=== PATIENT | female | born 1950 | race Caucasian/White ===

== ENCOUNTER 2017-02-24 08:10 | Emergency (ER) | payer OTHER ==
[~2017-02-24] VITALS: Ht 160 cm; Wt 67.6 kg
[2017-02-24 08:23] VITALS: BP_SYST 138
[2017-02-24] MEDS ORDERED: PHENAZOPYRIDINE HCL 100 MG TABLET PO ONE (09:15)
[2017-02-24 10:00] LABS: BILIRUBIN,URINE NEGATIVE (NEGATIVE); BLOOD, URINE 3+ (NEGATIVE); CLARITY/URINE SL CLOUDY (CLEAR); COLOR,URINE YELLOW (YELLOW); GLUCOSE,URINE NEGATIVE (NEGATIVE); KETONES,URINE NEGATIVE (NEGATIVE); LEUKOCYTE ESTERASE ,URINE 3+ (NEGATIVE); NITRITE, URINE POSITIVE (NEGATIVE); PROTEIN URINE 1+ (NEGATIVE); UROBILINOGEN,URINE 0.2 (0.2-1.0)
[2017-02-24 10:10] LABS: BACTERIA,URINE MODERATE /HPF (None Seen); RBC,URINE 20-50 /HPF (0-3); WBC,URINE 20-50 /HPF (0-3)
[2017-02-24 10:45] VITALS: BP_SYST 134
[2017-02-24] MEDS ORDERED: CIPROFLOXACIN HCL 500 MG TABLET PO ONE (10:45)
== END 2017-02-24 10:45 | disposition home or self-care (01) ==
LOC: SED 08:10
DX: N39.0 Urinary tract infection, site not specified (principal); I10 Essential (primary) hypertension; L40.9 Psoriasis, unspecified; Z90.89 Acquired absence of other organs
CPT/HCPCS: 74000-TC; 81000-TC; 87086; 87186-TC; 99285

== ENCOUNTER 2017-06-14 10:34 | Outpatient (CLI) | payer OTHER | END 2017-06-14 21:20 | disposition home or self-care (01) | LOC: SRD 10:34 | PROVIDERS: ATTEND Orthopaedic Surgery | DX: S93.602A Unspecified sprain of left foot, initial encounter (principal); S93.492A Sprain of other ligament of left ankle, initial encounter; X58.XXXA Exposure to other specified factors, initial encounter; Y93.89 Activity, other specified; Y92.89 Other specified places as the place of occurrence of the external cause; Y99.8 Other external cause status ==

== ENCOUNTER 2017-06-27 23:29 | Emergency (ER) | payer OTHER ==
[~2017-06-27] VITALS: Ht 160 cm; Wt 67.1 kg
[2017-06-27 23:50] VITALS: BP_SYST 116
[2017-06-28 04:10] VITALS: BP_SYST 118
== END 2017-06-28 04:45 | disposition home or self-care (01) ==
LOC: SED 23:29
DX: L03.116 Cellulitis of left lower limb (principal); I10 Essential (primary) hypertension
CPT/HCPCS: 99283

== ENCOUNTER 2017-09-02 05:13 | Emergency (ER) | payer OTHER ==
[~2017-09-02] VITALS: Ht 157.5 cm; Wt 68.0 kg
[2017-09-02 05:22] VITALS: BP_SYST 145
[2017-09-02] MEDS ORDERED: ACETAMINOPHEN 325 MG TABLET PO ONE (06:15)
[2017-09-02 06:26] VITALS: BP_SYST 137
== END 2017-09-02 06:26 | disposition home or self-care (01) ==
LOC: SED 05:13
DX: S16.1XXA Strain of muscle, fascia and tendon at neck level, initial encounter (principal); I10 Essential (primary) hypertension; Z90.89 Acquired absence of other organs; Z98.890 Other specified postprocedural states; X58.XXXA Exposure to other specified factors, initial encounter; Y93.89 Activity, other specified; Y92.89 Other specified places as the place of occurrence of the external cause; Y99.8 Other external cause status
CPT/HCPCS: 99283

== ENCOUNTER 2018-07-01 09:28 | Inpatient (IN) | payer OTHER ==
[~2018-07-01] VITALS: Ht 160 cm; Wt 67.1 kg
[2018-07-01 09:42] VITALS: BP_SYST 132
[2018-07-01] MEDS ORDERED: NACL 0.9% 2,000 ML IV ONE (11:45)
[2018-07-01] MEDS ORDERED: LEVOFLOXACIN 500 MG/D5W 100 ML IV ONE (11:45)
[2018-07-01] MEDS ORDERED: NACL 0.9% 1,000 ML IV ONE (12:00)
[2018-07-01] MEDS ORDERED: ENOXAPARIN SODIUM 80 MG/0.8 ML SYRINGE SUBCUT ONE (12:00)
[2018-07-01 12:29] LABS: HEMATOCRIT 35.6 % (36-48); HEMOGLOBIN 11.7 g/dL (12.0-16.0); MEAN CORPUSCULAR HEMOGLOBIN 29 pg (27-31); MEAN CORPUSCULAR HGB CONC 33 % (32-36); MEAN CORPUSCULAR VOLUME 89 fL (79.0-98.0); PLATELET COUNT (AUTO) 219 K/uL (130-430); RED BLOOD CELL COUNT(AUTO) 3.98 MIL/uL (4.2-6.2); WHITE BLOOD COUNT (AUTO) 10.5 K/uL (4.8-10.8)
[2018-07-01 12:30] LABS: BASOPHILS % (AUTO) 0.6 % (0.0-2.0); EOSINOPHILS # (AUTO) 0.1 K/uL (0.0-0.4); EOSINOPHILS % (AUTO) 1.1 % (0.0-4.0); LYMPHOCYTES # (AUTO) 1.5 K/uL (1.0-5.5); LYMPHOCYTES % (AUTO) 14.5 % (20.5-51.5); MONOCYTES # (AUTO) 0.8 K/uL (0.0-1.0); MONOCYTES % (AUTO) 7.2 % (1.7-9.3); NEUTROPHILS # (AUTO) 8.1 K/uL (1.8-7.7); NEUTROPHILS % (AUTO) 76.6 % (40.0-70.0)
[2018-07-01 12:40] LABS: INR 1.2 (0.8-1.2); PROTHROMBIN TIME 11.8 SECS (9.5-12.5)
[2018-07-01 12:52] LABS: CALCIUM 9.1 mg/dL (8.4-11.0); CREATININE 0.68 mg/dL (0.55-1.30); POTASSIUM 4.1 mmol/L (3.5-5.1)
[2018-07-01 12:55] LABS: ALBUMIN 2.9 g/dL (3.4-4.8); TOTAL BILIRUBIN 0.7 mg/dL (0.0-1.0)
[2018-07-01 14:19] VITALS: BP_SYST 148
[2018-07-01] MEDS: ACETAMINOPHEN 325 MG TABLET PO PRN (16:57)
[2018-07-01] MEDS ORDERED: *LOVENOX 1MG/KG Q12H/PHARMACY XX ONE (17:00)
[2018-07-01 20:00] VITALS: BP_SYST 129
[2018-07-01] MEDS: ENOXAPARIN SODIUM 80 MG/0.8 ML SYRINGE SUBCUT SCH (20:59)
[2018-07-02] VITALS: BP_SYST 128
[2018-07-02 08:00] VITALS: BP_SYST 146
[2018-07-02] MEDS: ENOXAPARIN SODIUM 80 MG/0.8 ML SYRINGE SUBCUT SCH (08:03)
[2018-07-02 09:44] LABS: POTASSIUM 3.6 mmol/L (3.5-5.1)
[2018-07-02 09:45] LABS: CALCIUM 9.3 mg/dL (8.4-11.0); CREATININE 0.64 mg/dL (0.55-1.30)
[2018-07-02 09:47] LABS: ALBUMIN 2.9 g/dL (3.4-4.8); C-REACTIVE PROTEIN QUANT 11.9 mg/dL (0-0.5); TOTAL BILIRUBIN 0.8 mg/dL (0.0-1.0)
[2018-07-02 09:48] LABS: THYROID STIMULATING HORMONE 2.4 uIu/mL (0.34-4.82)
[2018-07-02 12:38] VITALS: BP_SYST 123
[2018-07-02 14:55] LABS: RETICULOCYTE COUNT 1.1 % (0.5-1.5)
[2018-07-02 15:25] VITALS: BP_SYST 123
[2018-07-02 16:41] VITALS: BP_SYST 127
[2018-07-02] MEDS: ACETAMINOPHEN 325 MG TABLET PO PRN (16:41)
== END 2018-07-02 17:00 | disposition home or self-care (01) | DRG 301 ==
LOC: SED 09:28 → SMU 13:45
PROVIDERS: ADMIT Internal Medicine Hospice and Palliative Medicine; ATTEND Internal Medicine Hospice and Palliative Medicine
DX: I82.402 Acute embolism and thrombosis of unspecified deep veins of left lower extremity (principal); D64.9 Anemia, unspecified; L40.9 Psoriasis, unspecified; Z80.0 Family history of malignant neoplasm of digestive organs; I10 Essential (primary) hypertension
CPT/HCPCS: 36415; 80053; 82977-TC; 84443-TC; 85025; 85044-TC; 85610-TC; 85651-TC; 85730-TC; 86140; 93971; 96360; 96372; 99285; J1650; J7030

== ENCOUNTER 2018-07-22 10:34 | Outpatient (CLI) | payer OTHER ==
[2018-07-22 11:40] LABS: BILIRUBIN,URINE NEGATIVE (NEGATIVE); BLOOD, URINE NEGATIVE (NEGATIVE); CLARITY/URINE CLEAR (CLEAR); COLOR,URINE YELLOW (YELLOW); GLUCOSE,URINE NEGATIVE (NEGATIVE); KETONES,URINE NEGATIVE (NEGATIVE); LEUKOCYTE ESTERASE ,URINE NEGATIVE (NEGATIVE); NITRITE, URINE NEGATIVE (NEGATIVE); PH,URINE 6.5 (5.0-8.0); PROTEIN URINE NEGATIVE (NEGATIVE); UROBILINOGEN,URINE 0.2 (0.2-1.0)
== END 2018-07-22 20:48 | disposition home or self-care (01) ==
LOC: SMA 10:34
DX: Z12.31 Encounter for screening mammogram for malignant neoplasm of breast (principal); N39.0 Urinary tract infection, site not specified
CPT/HCPCS: 77067; 81003; 87086

== ENCOUNTER 2018-07-25 15:57 | Emergency (ER) | payer OTHER ==
[~2018-07-25] VITALS: Ht 160 cm; Wt 67.1 kg
[2018-07-25 16:03] VITALS: BP_SYST 162
--- NOTE | 2018-07-25 16:06 | NUR ---
Patient to ER bed 07 to gown for evaluation. Side rails up.
--- NOTE | 2018-07-25 16:22 | NUR ---
Patient stated "I had red blood in my urine this morning". No c/o pain, denies N/V, pt is afebrile, VS WNL, respirations even and unlabored, cap refill <3.
--- NOTE | 2018-07-25 16:30 | NUR ---
Dr Hoang at bedside examining patient.
[2018-07-25 17:16] LABS: BILIRUBIN,URINE NEGATIVE (NEGATIVE); BLOOD, URINE 3+ (NEGATIVE); CLARITY/URINE SL CLOUDY (CLEAR); COLOR,URINE RED (YELLOW); GLUCOSE,URINE NEGATIVE (NEGATIVE); KETONES,URINE NEGATIVE (NEGATIVE); LEUKOCYTE ESTERASE ,URINE NEGATIVE (NEGATIVE); NITRITE, URINE NEGATIVE (NEGATIVE); PH,URINE 6.5 (5.0-8.0); PROTEIN URINE 1+ (NEGATIVE); UROBILINOGEN,URINE 0.2 (0.2-1.0)
[2018-07-25 17:19] LABS: BACTERIA,URINE FEW /HPF (None Seen); RBC,URINE >100 /HPF (0-3); WBC,URINE 0-3 /HPF (0-3)
--- NOTE | 2018-07-25 17:40 | NUR ---
Pt on stable condition, VS WNL, respirations even and unlabored, cap refill <3.
[2018-07-25 18:15] VITALS: BP_SYST 153
--- NOTE | 2018-07-25 18:25 | NUR ---
Patient given written and verbal discharge instructions and verbalizes understanding. SISI Hoang MD discussed with patient the results and treatment provided. Patient in stable condition. ID arm band removed. Rx of Flomax and Bethel given. Patient educated on pain management and to follow up with PMD. Pain Scale 0/10 . Opportunity for questions provided and answered. Medication side effect fact sheet provided.
== END 2018-07-25 18:31 | disposition home or self-care (01) ==
LOC: SED 15:57
DX: N20.0 Calculus of kidney (principal); R31.9 Hematuria, unspecified; I10 Essential (primary) hypertension; Z86.718 Personal history of other venous thrombosis and embolism
CPT/HCPCS: 81000-TC; 99284

== ENCOUNTER 2018-08-14 08:24 | Outpatient (CLI) | payer OTHER | END 2018-08-14 20:38 | disposition home or self-care (01) | LOC: SLB 08:24 | PROVIDERS: ATTEND Specialist | DX: I82.402 Acute embolism and thrombosis of unspecified deep veins of left lower extremity (principal) | CPT/HCPCS: 36415; 81400; 81403; 81407; 81479; 84311; 85300; 85303; 85306 ==

== ENCOUNTER 2018-08-22 13:00 | Outpatient (CLI) | payer OTHER | END 2018-08-22 20:57 | disposition home or self-care (01) | LOC: SMA 13:00 | PROVIDERS: ATTEND Internal Medicine | DX: R92.1 Mammographic calcification found on diagnostic imaging of breast (principal) | CPT/HCPCS: 76642; 77066 ==

== ENCOUNTER 2019-01-07 06:09 | Emergency (ER) | payer OTHER ==
[~2019-01-07] VITALS: Ht 160 cm; Wt 68.5 kg
[2019-01-07 06:30] VITALS: BP_SYST 148
--- NOTE | 2019-01-07 07:00 | NUR ---
Patient to ER bed 2 to gown for evaluation. Side rails up. Report given to Lenin FORD.
--- NOTE | 2019-01-07 07:25 | NUR ---
Pt c/o R hand pain w/swelling and mild decreased ROM w/o trauma. Pt has pain with palpation, no deformity noted.
--- NOTE | 2019-01-07 07:42 | NUR ---
SISI Hoang at bedside examining patient.
--- NOTE | 2019-01-07 08:00 | NUR ---
Pt medicated tolerated well.
[2019-01-07] MEDS ORDERED: PREDNISONE 20 MG TABLET PO ONE (08:15)
[2019-01-07] MEDS ORDERED: IBUPROFEN 600 MG TABLET PO ONE (08:15)
[2019-01-07 08:40] VITALS: BP_SYST 132
--- NOTE | 2019-01-07 08:40 | NUR ---
Patient given written and verbal discharge instructions and verbalizes understanding. ER MD discussed with patient the results and treatment provided. Patient in stable condition. ID arm band removed. Rx of prednisone given. Patient educated on pain management and to follow up with PMD. Pain Scale 2. Opportunity for questions provided and answered. Medication side effect fact sheet provided.
== END 2019-01-07 08:40 | disposition home or self-care (01) ==
LOC: SED 06:09
DX: M13.88 Other specified arthritis, other site (principal); I10 Essential (primary) hypertension
CPT/HCPCS: 73120; 99283; J7512

== ENCOUNTER 2019-01-24 09:46 | Outpatient (CLI) | payer OTHER ==
[2019-01-24 12:09] LABS: BASOPHILS % (AUTO) 0.3 % (0.0-2.0); EOSINOPHILS % (AUTO) 0.2 % (0.0-4.0); HEMATOCRIT 36.6 % (36-48); HEMOGLOBIN 12.1 g/dL (12.0-16.0); LYMPHOCYTES # (AUTO) 0.9 K/uL (1.0-5.5); LYMPHOCYTES % (AUTO) 6.6 % (20.5-51.5); MEAN CORPUSCULAR HEMOGLOBIN 30 pg (27-31); MEAN CORPUSCULAR HGB CONC 33 % (32-36); MEAN CORPUSCULAR VOLUME 90 fL (79.0-98.0); MONOCYTES # (AUTO) 0.5 K/uL (0.0-1.0); MONOCYTES % (AUTO) 3.7 % (1.7-9.3); NEUTROPHILS # (AUTO) 12.1 K/uL (1.8-7.7); NEUTROPHILS % (AUTO) 89.2 % (40.0-70.0); PLATELET COUNT (AUTO) 317 K/uL (130-430); RED BLOOD CELL COUNT(AUTO) 4.08 MIL/uL (4.2-6.2); RED CELL DISTRIBUTION WIDTH 13.6 % (9.0-15.0); WHITE BLOOD COUNT (AUTO) 13.6 K/uL (4.8-10.8)
[2019-01-24 12:31] LABS: ALBUMIN 3.1 g/dL (3.4-4.8); C-REACTIVE PROTEIN QUANT 5.1 mg/dL (0-0.5); CALCIUM 9.9 mg/dL (8.4-11.0); CREATININE 0.67 mg/dL (0.55-1.30); POTASSIUM 4.1 mmol/L (3.5-5.1); TOTAL BILIRUBIN 0.8 mg/dL (0.0-1.0)
[2019-01-24 12:53] LABS: ERYTHROCYTE SEDIMENTATION RATE 86 MM/HR (0-20)
[2019-01-25 07:20] LABS: HEPATITIS B SURFACE AG Negative (Negative); HEPATITIS C VIRUS AB <0.1 s/co ratio (0.0-0.9)
[2019-01-25 12:10] LABS: CA 27.29 28.6 U/mL (0.0-38.6)
[2019-01-26 21:09] LABS: RA LATEX TURBID 22.5 IU/mL (0.0-13.9)
[2019-01-27 13:07] LABS: ANTI NUCLEAR AB WITH REFLEX Positive (Negative)
[2019-01-27 18:09] LABS: CCP IgG AB 8 units (0-19)
[2019-01-30 16:15] LABS: HLA-B27 Negative (.)
== END 2019-01-24 20:58 | disposition home or self-care (01) ==
LOC: SRD 09:46
PROVIDERS: ATTEND Specialist
DX: M19.032 Primary osteoarthritis, left wrist (principal); M25.732 Osteophyte, left wrist; M77.31 Calcaneal spur, right foot; I82.412 Acute embolism and thrombosis of left femoral vein; Z79.01 Long term (current) use of anticoagulants
CPT/HCPCS: 36415; 80053; 81374; 84550-TC; 85025; 85379; 85651-TC; 86038; 86140; 86200; 86300; 86431; 86706; 86803; 87340

== ENCOUNTER 2019-02-19 09:00 | Day surgery (SDC) | payer OTHER ==
[2019-02-17 09:28] LABS: BASOPHILS % (AUTO) 0.5 % (0.0-2.0); EOSINOPHILS # (AUTO) 0.1 K/uL (0.0-0.4); EOSINOPHILS % (AUTO) 1.5 % (0.0-4.0); HEMOGLOBIN 11.4 g/dL (12.0-16.0); LYMPHOCYTES # (AUTO) 1.4 K/uL (1.0-5.5); LYMPHOCYTES % (AUTO) 14.7 % (20.5-51.5); MEAN CORPUSCULAR HEMOGLOBIN 30 pg (27-31); MEAN CORPUSCULAR HGB CONC 34 % (32-36); MEAN CORPUSCULAR VOLUME 90 fL (79.0-98.0); MONOCYTES # (AUTO) 0.7 K/uL (0.0-1.0); MONOCYTES % (AUTO) 7.7 % (1.7-9.3); NEUTROPHILS # (AUTO) 7.2 K/uL (1.8-7.7); NEUTROPHILS % (AUTO) 75.6 % (40.0-70.0); PLATELET COUNT (AUTO) 258 K/uL (130-430); RED BLOOD CELL COUNT(AUTO) 3.78 MIL/uL (4.2-6.2); RED CELL DISTRIBUTION WIDTH 14.7 % (9.0-15.0); WHITE BLOOD COUNT (AUTO) 9.5 K/uL (4.8-10.8)
[2019-02-17 09:31] LABS: ALBUMIN 3.1 g/dL (3.4-4.8); CALCIUM 8.6 mg/dL (8.4-11.0); CREATININE 0.73 mg/dL (0.55-1.30); POTASSIUM 4.1 mmol/L (3.5-5.1); PROTHROMBIN TIME 10.7 SECS (9.5-12.5); TOTAL BILIRUBIN 0.6 mg/dL (0.0-1.0)
[~2019-02-19] VITALS: Ht 160 cm; Wt 70.3 kg
[2019-02-19] MEDS ORDERED: LIDOCAINE/EPI 1% 1:100000 20 ML VIAL INJ ONE (09:01)
[2019-02-19] MEDS ORDERED: NS IRRIG SOLN 1000 ML IR ONE (09:01)
[2019-02-19] MEDS ORDERED: LR 1,000 ML IV.SOLN IV ONE (09:01)
[2019-02-19] MEDS ORDERED: ONDANSETRON HCL 4 MG/2 ML VIAL IVP ONE (09:01)
[2019-02-19] MEDS ORDERED: PROPOFOL 200MG/ 20ML VIAL (DIPRIVAN) IV ONE (09:01)
[2019-02-19] MEDS ORDERED: SEVOFLURANE 15 MIN GAS INH ONE (09:01)
[2019-02-19] MEDS ORDERED: KETOROLAC TROMETHAMINE 30 MG VIAL IVP ONE (09:01)
[2019-02-19] MEDS ORDERED: MIDAZOLAM HCL 5 MG/5 ML VIAL IVP ONE (09:01)
[2019-02-19] MEDS ORDERED: fentaNYL CITRATE/PF 100 MCG/2 ML AMP IVP ONE (09:01)
[2019-02-19] MEDS ORDERED: CEFAZOLIN 2 GM IVPB PREMIX 50 ML IV ONE (09:01)
[2019-02-19] MEDS ORDERED: ISOSULFAN BLUE 5 ML VIAL (LYMPHAZURIN) INJ ONE (09:01)
[2019-02-19] MEDS ORDERED: KETOROLAC TROMETHAMINE 30 MG VIAL IVP PRN (15:15)
[2019-02-19] MEDS ORDERED: ONDANSETRON HCL 4 MG/2 ML VIAL IVP PRN ×2 (15:15→18:15)
[2019-02-19] MEDS ORDERED: fentaNYL CITRATE/PF 100 MCG/2 ML AMP IVP PRN ×2 (15:15)
--- NOTE | 2019-02-19 16:10 | NUR ---
opening note patient brought in from PACU for observation, vitals taken were 99.4, 133/77, 70, 97%, 18, educated chain builder loom control light system and orders that Dr Torres has for her, patient verbalized understanding, no other needs at this time, fall/safety precautions in place.
[2019-02-19] MEDS ORDERED: RIVA20TA PO (17:56)
[2019-02-19] MEDS ORDERED: PRED5TAB PO (17:57)
[2019-02-19] MEDS ORDERED: FOLI-43 PO (17:57)
[2019-02-19] MEDS ORDERED: METH2.5T PO (17:58)
[2019-02-19] MEDS ORDERED: HYDR-4272 PO (17:58)
[2019-02-19] MEDS ORDERED: IBUP-1971 PO (17:59)
[2019-02-19] MEDS ORDERED: DOCU-144 PO (17:59)
[2019-02-19] MEDS ORDERED: HYDROmorphone 1 MG INJ. 1 MG/ML AMPUL IVP PRN (18:15)
--- NOTE | 2019-02-19 18:52 | NUR ---
closing note patient is resting in bed, family in the room, prn pain medication was given to patient for left breast pain, informed patient that she can go home tonight but we do need her to ambulate before she leaves, the family was given the prescription written by Dr Torres, I informed the INVESTMENT ANALYST about the patient leaving tonight, there are written orders in the binder chart for noc shift nurse to confirm with. Addendum: 02/19/19 at 1930 by Betsey Bravo RN vital signs BP and HR 1625- 131/75, 63 1640- 131/75, 63 1655- 131/75, 67 1710- 115/71, 69 1725- 105/91, 83 Addendum: 02/19/19 at 1931 by Betsey Bravo RN patient belongings patient belongings were given back to her from same day surgery.
--- NOTE | 2019-02-19 19:43 | NUR ---
Assumed care of patient. Patient is resting comfortably in bed, family in the room, prn pain medication was given by previous shift. Patient is in no acute distress but appears somewhat lethargic. Respirations are equal and none labored. Patient has ambulated and understand she may go home tonight. Patient wishes to rest for a while at this time do to sedation. Will continue to monitor for safety.
--- NOTE | 2019-02-19 20:20 | NUR ---
BP CHECKED X 2. TO RIGHT ARM. 84/59 P 74 AND 82/54 P73 R18 96.6. NO C/O PAIN AT THIS TIME. PATIENT DOES FEEL DIZZY AND DOES NOT FEEL SAFE GOING HOME AT THIS TIME. WILL CONSULT WITH CHARGE NURSE FOR CONSIDERATION TO KEEP PATIENT OVER NIGHT.
--- NOTE | 2019-02-19 21:52 | NUR ---
Patient resting comfortably. feels somewhat lightheaded and will remain overnight for observation. Patient is asymptomatic, no acute distress noted. will continue to monitor.
--- NOTE | 2019-02-19 23:04 | NUR ---
BP RE-CHECKED 90/58 P 79. NO ACUTE DISTRESS NOTED.
--- NOTE | 2019-02-19 23:40 | NUR ---
CONTACTED DR. YORK REGARDING PATIENT'S STATUS. MD MADE AWARE PATIENT WILL REMAIN INPATIENT FOR TONIGHT. PROVIDED ORDERS TO START NORCO 5MG Q6HRS PRN FOR PAIN MANAGEMENT. WILL CONTINUE TO MONITOR FOR SAFETY.
[2019-02-19] MEDS ORDERED: HYDROcodone/ACETAMIN 5-325 MG TAB (NORCO/ VICODIN) PO PRN (23:45)
--- NOTE | 2019-02-20 01:28 | NUR ---
BP 97/62 X04
[2019-02-20 01:36] VITALS: BP_SYST 90
--- NOTE | 2019-02-20 05:53 | NUR ---
Patient has has slept well this evening. No acute distress noted. Patient is tolerating PO well. blood pressure remains on the low side but denies dizziness. Patient c/o minor pain but tolerable. will continue to monitor for safety.
[2019-02-20 06:28] LABS: BASOPHILS % (AUTO) 0.2 % (0.0-2.0); EOSINOPHILS % (AUTO) 0.2 % (0.0-4.0); HEMATOCRIT 27.5 % (36-48); HEMOGLOBIN 9.6 g/dL (12.0-16.0); LYMPHOCYTES % (AUTO) 9.9 % (20.5-51.5); MEAN CORPUSCULAR HEMOGLOBIN 31 pg (27-31); MEAN CORPUSCULAR HGB CONC 35 % (32-36); MEAN CORPUSCULAR VOLUME 90 fL (79.0-98.0); MONOCYTES # (AUTO) 0.6 K/uL (0.0-1.0); MONOCYTES % (AUTO) 5.9 % (1.7-9.3); NEUTROPHILS # (AUTO) 8.3 K/uL (1.8-7.7); NEUTROPHILS % (AUTO) 83.8 % (40.0-70.0); PLATELET COUNT (AUTO) 191 K/uL (130-430); RED BLOOD CELL COUNT(AUTO) 3.06 MIL/uL (4.2-6.2); RED CELL DISTRIBUTION WIDTH 14.8 % (9.0-15.0); WHITE BLOOD COUNT (AUTO) 9.9 K/uL (4.8-10.8)
[2019-02-20 06:48] LABS: ALANINE AMINOTRANSFERASE 6 U/L (12-78); ALBUMIN 2.5 g/dL (3.4-4.8); ASPARTATE AMINOTRANSFERASE 14 U/L (10-37); CALCIUM 8.8 mg/dL (8.4-11.0); CHLORIDE 102 mmol/L (98-107); CREATININE 0.76 mg/dL (0.55-1.30); GLUCOSE 114 mg/dL (70-99); POTASSIUM 4.2 mmol/L (3.5-5.1); SODIUM SERUM 134 mmol/L (136-145); TOTAL BILIRUBIN 0.8 mg/dL (0.0-1.0); UREA NITROGEN, BLOOD 26 mg/dL (8-21)
[2019-02-20 06:51] LABS: ANION GAP < 3 (5-15); GFR AFRICAN AMERICAN 97 mL/min (>90)
--- NOTE | 2019-02-20 07:28 | NUR ---
rn opening note Report was endorsed by night nurse at bed side. Patient is awake and alert laying in bed. Patient has no complaints at this time. Patient educated acquisition editor light for assistance. Call light is with her. Patient has no other needs at this time. will continue to monitor.
[2019-02-20 07:57] VITALS: BP_SYST 111
[2019-02-20 09:07] VITALS: BP_SYST 111
--- NOTE | 2019-02-20 09:48 | NUR ---
Spoke with lawanda Landon to follow up in his office in 1 week. Patient can shower cover dressing with opsite.Patient made aware. Addendum: 02/20/19 at 1123 by Angely Huggins RN Patient educated on IS able to inspire [id number]. Patient states her daughter is here eating catheter. Patient educated news correspondent light for assistance.Call light is with patient. Patient has no other needs at this time.
--- NOTE | 2019-02-20 11:00 | NUR ---
discharge Patient educated on discharge paper work with no further questions. Written prescriptions were given to patient yesterday family has already filled medication. Patient states he pain is 0/10 at the moment. Patients dressing reinforced with OpSite as directed by dr. Mcknight. Patient has 's phone number. Patient's ID band removed. Patient IV catheter removed catheter intact apply gauze and tape to insertion site. Patient was educated on IS able to inspire [id number]. Patient took IS with her to continue at home. Patient transferred via wheel chair to daughter's car. no other needs at this time. no other questions.
== END 2019-02-20 11:00 | disposition home or self-care (01) ==
LOC: SDS 09:00 → SMU 09:00 → SDS 02-20 11:00
PROVIDERS: ATTEND Surgery
DX: D05.12 Intraductal carcinoma in situ of left breast (principal); Z86.718 Personal history of other venous thrombosis and embolism; Z88.2 Allergy status to sulfonamides; R00.0 Tachycardia, unspecified; Z79.899 Other long term (current) drug therapy
CPT/HCPCS: 19101; 19281; 36415 ×2; 38525; 71046; 78195; 80053 ×2; 85025 ×2; 85610; 85730; 88307; 88333; 88342; 93005; A9541; J0690; J1170; J1885; J2250; J2405; J2704; J3010; J7120; Q9968; 88305

== ENCOUNTER 2019-03-20 10:32 | Inpatient (IN) | payer OTHER ==
[2019-03-18 11:24] LABS: INR 1.3 (0.8-1.2); PROTHROMBIN TIME 13.2 SECS (9.5-12.5)
[2019-03-18 11:25] LABS: BASOPHILS % (AUTO) 0.3 % (0.0-2.0); EOSINOPHILS % (AUTO) 0.3 % (0.0-4.0); HEMATOCRIT 33.9 % (36-48); HEMOGLOBIN 11.2 g/dL (12.0-16.0); LYMPHOCYTES # (AUTO) 1.1 K/uL (1.0-5.5); LYMPHOCYTES % (AUTO) 9.2 % (20.5-51.5); MEAN CORPUSCULAR HEMOGLOBIN 30 pg (27-31); MEAN CORPUSCULAR HGB CONC 33 % (32-36); MEAN CORPUSCULAR VOLUME 91 fL (79.0-98.0); MONOCYTES % (AUTO) 8.2 % (1.7-9.3); NEUTROPHILS # (AUTO) 9.6 K/uL (1.8-7.7); PLATELET COUNT (AUTO) 292 K/uL (130-430); RED BLOOD CELL COUNT(AUTO) 3.73 MIL/uL (4.2-6.2); RED CELL DISTRIBUTION WIDTH 15.3 % (9.0-15.0); WHITE BLOOD COUNT (AUTO) 11.7 K/uL (4.8-10.8)
[2019-03-18 11:26] LABS: CALCIUM 8.9 mg/dL (8.4-11.0); CREATININE 0.81 mg/dL (0.55-1.30); POTASSIUM 3.5 mmol/L (3.5-5.1); TOTAL BILIRUBIN 1.4 mg/dL (0.0-1.0)
[~2019-03-20] VITALS: Ht 160 cm; Wt 70.3 kg
[~2019-03-20 10:32] MED LIST: DOCU-144 PO; FOLI-43 PO; HYDR-4272 PO; IBUP-1971 PO; METH2.5T PO; PRED5TAB PO
[2019-03-20] MEDS ORDERED: LR 1,000 ML IV SCH (13:39)
[2019-03-20] MEDS ORDERED: MORPHINE 4 MG/ML INJ. SYRINGE IVP PRN ×3 (13:45)
[2019-03-20] MEDS ORDERED: METOCLOPRAMIDE HCL 10 MG/2 ML VIAL IVP PRN (13:45)
[2019-03-20] MEDS: NACL 0.9% 1,000 ML IV SCH ×2 (14:05→22:54)
[2019-03-20] MEDS ORDERED: SEVOFLURANE 15 MIN GAS INH ONE (14:15)
[2019-03-20] MEDS ORDERED: LIDOCAINE/EPI 1% 1:100000 20 ML VIAL INJ ONE (14:15)
[2019-03-20] MEDS ORDERED: ONDANSETRON HCL 4 MG/2 ML VIAL IVP PRN (14:15)
[2019-03-20] MEDS ORDERED: CEFAZOLIN 1 GM IVPB PREMIX 50 ML IV ONE (14:15)
[2019-03-20] MEDS ORDERED: fentaNYL CITRATE 250 MCG/5 ML AMP ONE (14:15)
[2019-03-20] MEDS ORDERED: LR 1,000 ML IV.SOLN IV ONE (14:15)
[2019-03-20] MEDS ORDERED: ACETAMINOPHEN 325 MG TABLET PO PRN (14:15)
[2019-03-20] MEDS ORDERED: MIDAZOLAM HCL 5 MG/ML VIAL (VERSED) IV ONE (14:15)
[2019-03-20] MEDS ORDERED: PROPOFOL 200MG/ 20ML VIAL (DIPRIVAN) IV ONE (14:15)
[2019-03-20] MEDS ORDERED: ROCURONIUM BROMIDE 10 MG/ML (ZEMURON) ONE (14:15)
[2019-03-20] MEDS ORDERED: NS IRRIG SOLN 1000 ML IR ONE (14:15)
[2019-03-20] MEDS ORDERED: ONDANSETRON HCL 4 MG/2 ML VIAL ONE (14:15)
[2019-03-20] MEDS ORDERED: HYDROmorphone 1 MG INJ. 1 MG/ML AMPUL ONE (14:44)
[2019-03-20] MEDS: HYDROmorphone 1 MG INJ. 1 MG/ML AMPUL IVP PRN ×2 (14:45→20:40)
[2019-03-20] MEDS ORDERED: MORPHINE 4 MG/ML INJ. SYRINGE ONE (15:11)
--- NOTE | 2019-03-20 15:30 | NUR ---
Note Pt arrived on floor via bed in stable condition. No SOB/resp distress or severe left chest pain/discomfort noted at this time. Pt oriented to room and nursing routines/procedures. Questions/concerns were answered at this time. Call light within reach.
[2019-03-20 15:40] VITALS: BP_SYST 143
[2019-03-20 15:45] VITALS: BP_SYST 143
[2019-03-20] MEDS: CEFAZOLIN 1 GM IVPB PREMIX 50 ML IV SCH ×2 (16:32→22:52)
--- NOTE | 2019-03-20 16:45 | NUR ---
Note Admission assessment was completed at this time. Pt voided in bedpan at this time. Pt encouraged to use IS q1' 10X while awake. Pt has SCD's bilaterally. Left chest wall dressing CDI with MARIANO drain at this time. Pt eating ice chips at this time. Denies any N/V/pain at this time. Call light within reach. 4-5 family members are at bedside at this time. No needs noted at this time. Call light within reach.
--- NOTE | 2019-03-20 18:30 | NUR ---
Note Pt resting in bed with 3-4 family members at bedside at this time. No needs noted at this time. IV in right hand intact and patent infusing IVF's well. Pt was checked on q1' and PRN all shift for needs and care. No SOB/resp distress or severe left chest pain/discomfort noted. Left chest wall dressing CDI with MARIANO drain at this time. Call light within reach.
--- NOTE | 2019-03-20 19:30 | NUR ---
Opening notes Received report. Patient is resting comfortably in bed, talking to family. No signs of distress noted. Breathing even and unlabored. IV patent and intact, infusing fluids. Dressing to left breast is clean, dry and intact. MARIANO drain noted, with small amount of red drainage noted. Bilateral SCDs in place. Patient complains of pain, will give prn pain medication. Assisted patient onto bedpan. Hygiene care provided by patient. No other needs. Call light with the patient. Safety precautions in place. Family at bedside.
--- NOTE | 2019-03-20 20:40 | NUR ---
Pain Patient complains of pain. PRN pain medication given. Educated the action and side effects of medications. Patient verbalized understanding and tolerated well. No signs of allergic reaction noted. Provided patient with blanket, water and hygiene care items. No other needs. Call light with the patient. Safety precautions in place.
[2019-03-20 20:44] VITALS: BP_SYST 136
--- NOTE | 2019-03-20 23:00 | NUR ---
IVDAVID smith. Educated the patient the action and side effects of medications. Patient verbalized understanding and tolerated well. No signs of allergic reaction noted. New bag of IVF hung. No other needs. Call light with the patient. Safety precautions in place.
[2019-03-21] VITALS: BP_SYST 122
--- NOTE | 2019-03-21 00:57 | NUR ---
Taken off IV fluids Patient requests to be taken off fluids because she is urinating too much. Patient has been drinking fluids and tolerating well. Patient saline locked. Provided with more water. No other needs. Patient watching TV.call light with the patient. Safety precautions in place.
--- NOTE | 2019-03-21 03:41 | NUR ---
Resting Patient put on bedpan to urinate. Hygiene care provided by patient. No other needs. Call light with the patient. Safety precautions in place.
--- NOTE | 2019-03-21 06:19 | NUR ---
Closing notes Patient resting comfortably in bed. No signs of distress noted. Breathing even and unlabored. IV patent and intact, saline locked. Bilateral SCDs in place. Patient used incentive spirometer throughout shift. Able to inspire 2500 ml. All needs met throughout the shift. Call light with the patient. Safety precautions in place. Will endorse care to day shift RN.
[2019-03-21 07:23] LABS: BASOPHILS % (AUTO) 0.4 % (0.0-2.0); EOSINOPHILS % (AUTO) 0.5 % (0.0-4.0); HEMATOCRIT 26.7 % (36-48); HEMOGLOBIN 9.1 g/dL (12.0-16.0); LYMPHOCYTES % (AUTO) 12.4 % (20.5-51.5); MEAN CORPUSCULAR HEMOGLOBIN 31 pg (27-31); MEAN CORPUSCULAR HGB CONC 34 % (32-36); MEAN CORPUSCULAR VOLUME 90 fL (79.0-98.0); MONOCYTES # (AUTO) 0.6 K/uL (0.0-1.0); NEUTROPHILS # (AUTO) 6.3 K/uL (1.8-7.7); NEUTROPHILS % (AUTO) 79.7 % (40.0-70.0); PLATELET COUNT (AUTO) 276 K/uL (130-430); RED BLOOD CELL COUNT(AUTO) 2.98 MIL/uL (4.2-6.2); RED CELL DISTRIBUTION WIDTH 15.2 % (9.0-15.0); WHITE BLOOD COUNT (AUTO) 7.9 K/uL (4.8-10.8)
--- NOTE | 2019-03-21 07:23 | NUR ---
Attending Md/Gen Surgeon Dr Torres was called, Re: diet and medication orders. Spoke to Charisse.
[2019-03-21 07:52] LABS: ALBUMIN 2.4 g/dL (3.4-4.8); CALCIUM 8.6 mg/dL (8.4-11.0); CREATININE 0.63 mg/dL (0.55-1.30); POTASSIUM 3.9 mmol/L (3.5-5.1); TOTAL BILIRUBIN 0.6 mg/dL (0.0-1.0)
[2019-03-21 08:00] VITALS: BP_SYST 140
--- NOTE | 2019-03-21 08:00 | NUR ---
Note Dr Torres was paged and responded at 0720am for ADAT and Prednisone PO. Pt sitting up in bed eating her regular breakfast sitting on side of bed. No SOB/resp distress or severe left chest wall pain/discomfort noted at this time. MARIANO drain on left chest wall near incision site intact and draining at this time. Pt ambulated with RN to restroom with steady gait. No weakness/dizziness or N/V noted. IV in right hand intact and patent at this time. Call light within reach.
[2019-03-21] MEDS ORDERED: PREDNISONE 5 MG TABLET PO SCH (09:00)
--- NOTE | 2019-03-21 09:28 | NUR ---
Nutrition Update Monty Scale 17 noted. 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
[2019-03-21] MEDS: NACL 0.9% 1,000 ML IV SCH (10:05)
[2019-03-21] MEDS: HYDROcodone/ACETAMIN 5-325 MG TAB (NORCO/ VICODIN) PO PRN ×2 (10:55→19:36)
--- NOTE | 2019-03-21 11:00 | NUR ---
Note Pt has been going to the restroom frequently with staff for standby assist. No needs noted and discomfort at left chest wall tolerable at this time. Call light within reach.
[2019-03-21 12:10] VITALS: BP_SYST 136
--- NOTE | 2019-03-21 14:00 | NUR ---
Note Pt was encouraged and at this time ambulating in halls with granddaughter by her side. No dizziness/weakness or pain noted. Pt also encouraged to deep breathe and cough q1' 10X while awake and use IS as tolerated. Pt denies any needs at this time. Call light within reach.
[2019-03-21 16:30] VITALS: BP_SYST 99
--- NOTE | 2019-03-21 18:30 | NUR ---
PAGED: PAGED DR. YORK REGARDING ORDERS. SPOKE WITH KATHY
--- NOTE | 2019-03-21 18:50 | NUR ---
Note Dr Torres was paged 3-4 times. No call back received. Pt dressed and daughter at bedside. Pt packed all belongings. Call light within reach. Pt was checked on q1' and PRN all shift for needs and care. Call light within reach.
[2019-03-21 19:25] VITALS: BP_SYST 135
--- NOTE | 2019-03-21 19:50 | NUR ---
Note Pt off the floor to private car. Pt has discharge instructions and prescription. Questions/concerns were answered at this time. Left chest wall dressing CDI with MARIANO drain. Pt stable.
--- NOTE | 2019-04-08 15:47 | NUR ---
DISCHARGE FOLLOW UP PHONE CALL MAU/ GEORGE COLE PHONED PATIENT, . PATIENT STATED SHE IS DOING BETTER. SHE CONTINUES TO TAKE HER HOME MEDICATIONS INSTRUCTED. SHE HAS FOLLOWED WITH HER PCP. HAS NO QUESTIONS ABOUT DISCHARGE INSTRUCTIONS.
== END 2019-03-21 19:50 | disposition home or self-care (01) | DRG 583 ==
LOC: SMU 10:32 → SDS 10:32 → SMU 14:37 → SDS 14:43 → SMU 14:45
PROVIDERS: ADMIT Surgery; ATTEND Surgery
PROC: 0HTU0ZZ Resection of Left Breast, Open Approach (ICD-10-PCS; principal; 2019-03-20 13:00)
DX: C50.912 Malignant neoplasm of unspecified site of left female breast (principal); M19.90 Unspecified osteoarthritis, unspecified site; I10 Essential (primary) hypertension; Z88.2 Allergy status to sulfonamides; Z79.899 Other long term (current) drug therapy
CPT/HCPCS: 36415; 80053; 85025; 85610-TC; 85730-TC; 87081; 88307; J0690; J1170; J2250; J2270; J2405; J2704; J3010; J7030; J7120; J7512